=== PATIENT | male | born 1935 | race Caucasian/White ===

== ENCOUNTER → 2016-12-26 | Outpatient (CLI) | payer MEDICARE, OTHER ==
[~2016-12-26] MED LIST: ALDACTONE25 MG PO; ALPHA LIPOIC A200 MG PO; ASPIRIN (CHILDR81 MG PO; FLAX, FISH & B1 EACH; GLUCOSAMINE1000 MG PO; KEFLEX500 MG PO; RESVERATROL100 MG PO; SIMVASTATIN20 MG PO; VITAMIN D1000 UNIT PO
== END | disposition disaster alternative care site (69) ==
LOC: LBOND 17:17
DX: Z48.3 Aftercare following surgery for neoplasm (principal); C44.529 Squamous cell carcinoma of skin of other part of trunk; R22.31 Localized swelling, mass and lump, right upper limb

== ENCOUNTER 2017-03-08 11:54 | Emergency (ER) | payer MEDICARE, OTHER ==
--- NOTE | ~2017-03-08 | ER ---
PATIENT'S NAME: [facility] AGE: 81 Y [address] ROOM: [place] [address] LOCATION: [facility] ADMIT DATE: 03/08/2017 ER/Outpatient Report DISCHARGE DATE: 03/08/2017 FAMILY PHYSICIAN: Saul Fernandez MD ATTENDING PHYSICIAN: Edwin Campuzano TIME SEEN: 1300 hours. HISTORY OF PRESENT ILLNESS: The patient is an 81-year-old male who said on Thursday, he was pushing a lawnmower when a small stalk of a weed penetrated his left anterior lower leg. He said he did pull it out, and did not think that there were any remains left in the wound. The patient then over the last 24 hours, has developed some increased pain and redness. No drainage. No fevers. ALLERGIES: NONE. CURRENT MEDICATIONS: See his copied list. IMMUNIZATIONS: He said he thinks he is current on his tetanus since he has done some [place] travel in the last two years. The patient will check with Dr. Fernandez tomorrow for sure. PAST MEDICAL HISTORY: Otherwise, his medical history, 1. He has hypertension. 2. He has had a previous CVA. 3. TIA. PAST SURGICAL HISTORY: Surgeries include 1. Appendectomy. 2. Left wrist surgery. SOCIAL HISTORY: Alcohol every other day. REVIEW OF SYSTEMS: CONSTITUTIONAL: General health is good for his age. No fevers. SKIN/MUSCULOSKELETAL: He has a puncture wound to the left ferraro area, which has become painful and red. [facility] 81 [facility] [address] ROOM: [place] [address] LOCATION: [facility] ADMIT DATE: 03/08/2017 ER/Outpatient Report DISCHARGE DATE: 03/08/2017 FAMILY PHYSICIAN: Saul Fernandez MD ATTENDING PHYSICIAN: Edwin Campuzano PHYSICAL EXAMINATION: VITAL SIGNS: His blood pressure was 143/69, his temperature was 98, his pulse was 73, his respiratory rate was 16, and his O2 sats were 98%. GENERAL: The patient was able to walk to the Examination Room. He is alert and oriented. EXTREMITIES: Exam of his left lower leg showed a small closed wound at the size of about 0.5 x 0.5 cm. The area appeared slightly swollen, slightly tender, and some slight erythema. DIAGNOSTIC STUDIES: X-rays for foreign body, none visualized. ASSESSMENT: 1. Puncture wound on left ferraro. 2. Cellulitis. PLAN: Keflex 500 daily. Warm moist heat three or four times a day. Follow up in 48 hours. Check tomorrow with Dr. Fernandez on his tetanus immunization. The patient verbalized understanding of his take-home instructions. KEVON BROWN FOR MD VLAD CROSS/rai /[id number] d: 03/08/171942 t: 03/23/17 0650, OUTPATIENT REPORT
[2017-03-11] MEDS ORDERED: KEFLEX500 MG PO (14:48)
[2017-03-11] MEDS ORDERED: FLAX, FISH & B1 EACH (14:48)
[2017-03-11] MEDS ORDERED: ALDACTONE25 MG PO (14:49)
[2017-03-11] MEDS ORDERED: ALPHA LIPOIC A200 MG PO (14:49)
[2017-03-11] MEDS ORDERED: ASPIRIN (CHILDR81 MG PO (14:49)
[2017-03-11] MEDS ORDERED: GLUCOSAMINE1000 MG PO (14:50)
[2017-03-11] MEDS ORDERED: RESVERATROL100 MG PO (14:51)
[2017-03-11] MEDS ORDERED: SIMVASTATIN20 MG PO (14:51)
[2017-03-11] MEDS ORDERED: VITAMIN D1000 UNIT PO (14:52)
== END 2017-03-08 14:12 | disposition disaster alternative care site (69) ==
LOC: GMED 11:54
DX: S81.832A Puncture wound without foreign body, left lower leg, initial encounter (principal); L03.116 Cellulitis of left lower limb; I10 Essential (primary) hypertension; Z86.73 Personal history of transient ischemic attack (TIA), and cerebral infarction without residual deficits; Z90.49 Acquired absence of other specified parts of digestive tract; Z98.890 Other specified postprocedural states; Z79.82 Long term (current) use of aspirin; Z79.899 Other long term (current) drug therapy; W45.8XXA Other foreign body or object entering through skin, initial encounter; Y93.89 Activity, other specified